=== PATIENT | female | born 1995 | race Caucasian/White ===

== ENCOUNTER 2019-08-19 22:54 | Observation (INO) ==
[2019-08-19] MEDS ORDERED: 0.9 % Sodium Chloride 1,000 ML IVC ONE (23:25)
[2019-08-19 23:37] LABS: Basophils # 0.1 K/mcL (0.0-0.2); Basophils % 0.9 %; Eosinophils # 0.1 K/mcL (0.0-0.6); Eosinophils % 0.8 %; Hematocrit 42.5 % (35.3-44.9); Hemoglobin 13.4 g/dL (11.5-15.4); Immature Granulocytes % 0.5 % (0-4); Lymphocytes % 23.2 %; Mean Corpuscular HGB Conc 31.5 g/dL (31.6-35.5); Mean Corpuscular Hemoglobin 26.6 pg (28.0-33.3); Mean Corpuscular Volume 84.5 fL (83.0-100.0); Mean Platelet Volume 9.1 fL (9.4-12.4); Monocytes # 1.3 K/mcL (0.0-1.3); Monocytes % 9.9 %; Neutrophils # 8.3 K/mcL (1.6-8.9); Platelet Count 510 K/mcL (140-400); Red Blood Count 5.03 M/mcL (3.82-4.97); Segmented Neutrophils % 64.7 %; White Blood Count 12.7 K/mcL (4.3-11.1)
[2019-08-19 23:53] LABS: BUN/Creatinine Ratio 7 (6-26); Blood Urea Nitrogen 5 mg/dL (6-20); Calcium 9.9 mg/dL (8.6-10.3); Carbon Dioxide 26 mEq/L (23-29); Chloride 100 mEq/L (98-107); Glucose 83 mg/dL (70-105); Osmolality,Calculated 280 (280-300); Potassium 3.6 mEq/L (3.5-5.1); Sodium 137 mEq/L (136-145); eGFR For African Americans > 60 (> 60); eGFR For Non-African Americans > 60 (> 60)
[2019-08-20] MEDS ORDERED: Isovue-370 500 ML BOTTLE IVP ONE (00:10)
[2019-08-20 00:57] LABS: Bacteria,Urine None Seen per hpf (None-Few); Bilirubin,Urine Negative (Negative); Blood,Urine Trace-intact (Negative); Clarity,Urine Clear (Clear); Color,Urine Yellow (Yellow); Glucose,Urine (UA) Normal (Normal); Hyaline Casts,Urine None Seen per lpf (None-Few); Ketones,Urine Negative (Negative); Leukocyte Esterase,Urine Negative (Negative); Nitrite,Urine Negative (Negative); Protein,Urine Negative (Neg-Trace); RBC,Urine 0-3 per hpf (0-3); Squamous Epithelial Cell,Urine Many per lpf (None-Few); Urobilinogen,Urine Normal (Normal); WBC,Urine 0-3 per hpf (0-3)
[2019-08-20] MEDS ORDERED: cefTAZidime 2,000 MG in 0.9 % Sodium Chloride Mini Bag 100 ML IVP ONE (01:09)
[2019-08-20] MEDS ORDERED: 0.9 % Sodium Chloride 1,000 ML IVC ONE (01:22)
[2019-08-20] MEDS ORDERED: Aminoglycoside Consult 1 EACH MC ONE (03:15)
[2019-08-20] MEDS ORDERED: Naloxone 0.4 MG/ML INJ IVP PRN (03:18)
[2019-08-20] MEDS ORDERED: Ringers Solution, Lactated 1,000 ML IVC ONE (03:20)
[2019-08-20] MEDS ORDERED: Ringers Solution, Lactated 1,000 ML IVC SCH ×2 (03:30→04:15)
[2019-08-20] MEDS ORDERED: D5% in Water 1,000 ML IVC PRN (03:32)
[2019-08-20] MEDS ORDERED: *HR* Dextrose 50 % in Water (Syg) 50 ML SYRINGE IVP PRN (03:32)
[2019-08-20] MEDS ORDERED: Dextrose Gel 15 GM/37.5 ML TUBE PO PRN ×2 (03:32)
[2019-08-20 05:21] LABS: Basophils # 0.1 K/mcL (0.0-0.2); Basophils % 0.6 %; Eosinophils # 0.1 K/mcL (0.0-0.6); Eosinophils % 0.5 %; Hematocrit 35.3 % (35.3-44.9); Immature Granulocytes % 0.4 % (0-4); Lymphocytes # 3.2 K/mcL (0.6-4.6); Lymphocytes % 23.4 %; Mean Corpuscular HGB Conc 31.7 g/dL (31.6-35.5); Mean Corpuscular Hemoglobin 26.9 pg (28.0-33.3); Mean Corpuscular Volume 84.9 fL (83.0-100.0); Mean Platelet Volume 9.4 fL (9.4-12.4); Monocytes # 1.4 K/mcL (0.0-1.3); Monocytes % 10.3 %; Neutrophils # 8.9 K/mcL (1.6-8.9); Platelet Count 425 K/mcL (140-400); Red Blood Count 4.16 M/mcL (3.82-4.97); Segmented Neutrophils % 64.8 %; White Blood Count 13.7 K/mcL (4.3-11.1)
[2019-08-20 05:22] LABS: Hemoglobin 11.2 g/dL (11.5-15.4)
[2019-08-20] MEDS: *HR* Heparin 5,000 UNIT/ML VIAL SQ SCH ×3 (05:36→20:13)
[2019-08-20 05:58] LABS: BUN/Creatinine Ratio 6 (6-26); Blood Urea Nitrogen 4 mg/dL (6-20); Calcium 8.3 mg/dL (8.6-10.3); Chloride 106 mEq/L (98-107); Glucose 102 mg/dL (70-105); Osmolality,Calculated 281 (280-300); Potassium 3.7 mEq/L (3.5-5.1); Sodium 137 mEq/L (136-145); eGFR For African Americans > 60 (> 60); eGFR For Non-African Americans > 60 (> 60)
[2019-08-20 06:11] LABS: Carbon Dioxide 20 mEq/L (23-29)
[2019-08-20] MEDS ORDERED: Acetaminophen 325 MG TABLET PO PRN (06:40)
[2019-08-20] MEDS: Insulin LISPRO 300 UNITS/3 ML VIAL SQ SCH ×6 (07:41→17:07)
[2019-08-20] MEDS: Piperacillin/Tazobactam 3.375 GM in 0.9 % Sodium Chloride Mini Bag 100 ML IVPB SCH ×2 (08:13→15:10)
[2019-08-20] MEDS ORDERED: 0.9 % Sodium Chloride 1,000 ML IVC SCH (08:19)
[2019-08-20 08:47] LABS: Estimated Average Glucose 117 mg/dl
[2019-08-20] MEDS: Ringers Solution, Lactated 500 ML IVC SCH (20:13)
[2019-08-20] MEDS ORDERED: Insulin LISPRO 300 UNITS/3 ML VIAL SQ SCH (21:00)
[2019-08-20] MEDS ORDERED: Melatonin 3 MG TABLET PO SCH (21:00)
[2019-08-21] MEDS: Piperacillin/Tazobactam 3.375 GM in 0.9 % Sodium Chloride Mini Bag 100 ML IVPB SCH ×2 (00:10→08:30)
[2019-08-21 04:48] LABS: Basophils # 0.1 K/mcL (0.0-0.2); Basophils % 1.1 %; Eosinophils # 0.1 K/mcL (0.0-0.6); Eosinophils % 1.3 %; Hematocrit 37.9 % (35.3-44.9); Hemoglobin 11.4 g/dL (11.5-15.4); Immature Granulocytes % 0.4 % (0-4); Lymphocytes # 2.3 K/mcL (0.6-4.6); Mean Corpuscular HGB Conc 30.1 g/dL (31.6-35.5); Mean Corpuscular Volume 86.5 fL (83.0-100.0); Mean Platelet Volume 9.9 fL (9.4-12.4); Monocytes % 10.9 %; Neutrophils # 5.6 K/mcL (1.6-8.9); Platelet Count 350 K/mcL (140-400); Red Blood Count 4.38 M/mcL (3.82-4.97); Segmented Neutrophils % 61.3 %; White Blood Count 9.1 K/mcL (4.3-11.1)
[2019-08-21] MEDS: Ringers Solution, Lactated 500 ML IVC SCH (05:05)
[2019-08-21 05:19] LABS: Platelet Estimate Normal (Normal)
[2019-08-21 06:05] LABS: BUN/Creatinine Ratio 7 (6-26); Blood Urea Nitrogen 4 mg/dL (6-20); Calcium 9.2 mg/dL (8.6-10.3); Carbon Dioxide 24 mEq/L (23-29); Chloride 106 mEq/L (98-107); Glucose 97 mg/dL (70-105); Osmolality,Calculated 281 (280-300); Potassium 3.9 mEq/L (3.5-5.1); Sodium 137 mEq/L (136-145); eGFR For African Americans > 60 (> 60); eGFR For Non-African Americans > 60 (> 60)
[2019-08-21] MEDS: *HR* Heparin 5,000 UNIT/ML VIAL SQ SCH (06:11)
[2019-08-21 06:45] VITALS: BP 118/82
[2019-08-21] MEDS: Insulin LISPRO 300 UNITS/3 ML VIAL SQ SCH ×2 (07:50→07:51)
== END 2019-08-21 11:58 | disposition home or self-care (01) ==
LOC: 3ANU 22:54 → EMEROOARM 22:54 → SUATTDRO 08-20 03:14 → 2ANU 08-20 03:58
PROVIDERS: ADMIT Internal Medicine; ATTEND Internal Medicine